=== PATIENT | female | born 2000 | race Caucasian/White ===

== ENCOUNTER 2020-07-09 18:01 | Emergency (ER) | payer MEDICAID ==
[~2020-07-09] VITALS: Ht 170.2 cm; Wt 204.1 kg
[2020-07-09 18:12] VITALS: BP 189/84
--- NOTE | 2020-07-09 18:38 | NUR ---
BIB MOTHER C/O SOB/WHEEZING/RIGHT FOOT SWELLING X2 DAYS. RESP EVEN AND UNLABORED. PATIENT IS WEAK D/T SOB, INHALER HAS NOT BEEN RELIEVING SOB .PT AWAKE , ALERT, AFIBRILE , AMBULATORY WITH STEADY GAIT , SCE , WHEEZES BLF , ROUND SOFT ABDOMEN.PLUS 2 NON PITTING EDEMA BILATERAL LOWER EXT. PMH: ASTHMA, HYDRONEPHROSIS, SEIZURES, ANXIETY, DEPRESSION, INTELLECTUAL DISABILITY Addendum: 07/09/20 at 1851 by MEDAD BIB MOTHER C/O SOB/WHEEZING/RIGHT FOOT SWELLING X2 DAYS. RESP EVEN AND UNLABORED. PATIENT IS WEAK D/T SOB, INHALER HAS NOT BEEN RELIEVING SOB .PT AWAKE , ALERT, AFIBRILE , AMBULATORY WITH STEADY GAIT , SCE , ROUND SOFT ABDOMEN.PLUS 1 NON PITTING EDEMA BILATERAL LOWER EXT. PMH: ASTHMA, HYDRONEPHROSIS, SEIZURES, ANXIETY, DEPRESSION, INTELLECTUAL DISABILITY
--- NOTE | 2020-07-09 18:46 | NUR ---
DR GARCIA AT BEDSIDE EVALUATRING PT.
[2020-07-09] MEDS ORDERED: KETOROLAC 60 MG/2 ML VIAL IM ONE (18:50)
--- NOTE | 2020-07-09 19:04 | NUR ---
MEDS GIVEN TO SEVEN TAI .
--- NOTE | 2020-07-09 19:05 | NUR ---
GAVE REPORT TO SEVEN TAI WITH STABLE VSS , MOTHER AT BEDSIDE.
--- NOTE | 2020-07-09 19:10 | NUR ---
REPORT RECEIVED FROM TRE AMEZCUA. ULTRASOUND AT BEDSIDE AT THIS TIME
[2020-07-09] MEDS ORDERED: ALBUTEROL SULFATE/IPRATROPIU 3 ML SOL IH ONE (19:25)
[2020-07-09] MEDS ORDERED: LORazepam 2 MG/ML VIAL IM ONE (19:35)
[2020-07-09 19:53] LABS: BASOPHILS # (AUTO) 0.1 K/uL (0.00-0.22); BASOPHILS % (AUTO) 0.5 % (0.0-2.0); EOSINOPHILS # (AUTO) 0.1 K/uL (0-0.4); EOSINOPHILS % (AUTO) 1.1 % (0.0-4.0); HEMOGLOBIN 12.9 g/dL (12.0-16.0); LYMPHOCYTES # (AUTO) 3.3 K/uL (2.5-16.5); MEAN CORPUSCULAR HEMOGLOBIN 28 pg (27-31); MEAN CORPUSCULAR HGB CONC 32 g/dL (33-37); MEAN CORPUSCULAR VOLUME 86.4 fL (80-94); MONOCYTES # (AUTO) 1.2 K/uL (0.8-1.0); MONOCYTES % (AUTO) 8.7 % (1.7-9.3); NEUTROPHILS # (AUTO) 9.1 K/uL (1.8-7.7); NEUTROPHILS % (AUTO) 65.7 % (42.2-75.2); PLATELET COUNT (AUTO) 251 K/uL (140-450); RED BLOOD CELL COUNT(AUTO) 4.63 MIL/uL (4.20-5.40); RED CELL DISTRIBUTION WIDTH 15.1 % (11.6-13.7); WHITE BLOOD COUNT (AUTO) 13.8 K/uL (4.8-10.8)
--- NOTE | 2020-07-09 20:06 | NUR ---
COVID AND INFLUENZA A AND B COLLECTED AND TAKEN TO LAB
[2020-07-09 20:16] LABS: ALBUMIN 2.6 g/dL (3.4-5.0); ANION GAP 7.8 (8-16); CARBON DIOXIDE 29.3 mmol/L (21-32); CREATININE 0.8 mg/dL (0.6-1.3); POTASSIUM 4.1 mmol/L (3.5-5.1); TOTAL BILIRUBIN 0.2 mg/dL (0.0-1.0)
--- NOTE | 2020-07-09 20:33 | NUR ---
PT RESTING QUIETLY AT THIS TIME. RESPIRATIONS REGULAR EVEN AND UNLABORED. MOM REAMINS AT BEDSIDE.
[2020-07-09 21:22] VITALS: BP 172/84
--- NOTE | 2020-07-09 21:23 | NUR ---
Patient discharged with v/s stable. Written and verbal after care instructions given and explained. Patient alert, oriented and verbalized understanding of instructions. Ambulatory with steady gait. All questions addressed prior to discharge. ID band removed. Patient advised to follow up with PMD. Rx of ALBUTEROL SOLUTION AND ZITHROMAX given. Patient educated on indication of medication including possible reaction and side effects. Opportunity to ask questions provided and answered.
== END 2020-07-09 21:23 | disposition home or self-care (01) ==
LOC: MED 18:01
DX: J18.9 Pneumonia, unspecified organism (principal); E66.01 Morbid (severe) obesity due to excess calories
CPT/HCPCS: 36415; 71045; 80053; 85025; 87426; 87804; 93971; 94640; 96372; 99285; J1885; J2060; Q0092

== ENCOUNTER 2020-07-12 21:27 | Emergency (ER) | payer MEDICAID ==
[~2020-07-12] VITALS: Ht 160 cm; Wt 181.4 kg
[2020-07-12 21:35] VITALS: BP 140/92
--- NOTE | 2020-07-12 22:11 | NUR ---
DR GARCIA AT BEDSIDE EVALUATING PT
--- NOTE | 2020-07-12 22:13 | NUR ---
20 Y/O FEMALE PT WAS SEEN IN ED 3 DAYS AGO DX WITH PNA, TESTED NEGATIVE FOR COVID. MOTHER STATES PT IS NOT IMPROVING WITH PRESCRIBED ABX. LUNGS SOUNDS CLA. O2 SAT 95% ON ROOM AIR. DENIES FEVER/PAIN. ABD SOFT NON TENDER. MED HX: MILD MENTAL RETARDATION, HYDRONEPHROSIS, ASTHMA RX: AZITHROMYCIN NKA
[2020-07-12] MEDS ORDERED: ALBUTEROL SULFATE/IPRATROPIU 3 ML SOL IH ONE (22:15)
--- NOTE | 2020-07-12 22:27 | NUR ---
RT AT BEDSIDE ADM BREATHING TX
[2020-07-12] MEDS ORDERED: LORazepam 2 MG/ML VIAL IM ONE (22:30)
--- NOTE | 2020-07-12 22:34 | NUR ---
SPO2 ON RA 94% HR 98 f 18 PT GIVEN DUO NEB Tx ORDERED PT HAS EXP WHZ
--- NOTE | 2020-07-12 23:00 | NUR ---
XRAY AT BEDSIDE
[2020-07-12 23:56] VITALS: BP 140/92
== END 2020-07-12 23:56 | disposition home or self-care (01) ==
LOC: MED 21:27
DX: R06.02 Shortness of breath (principal); B34.9 Viral infection, unspecified; E66.2 Morbid (severe) obesity with alveolar hypoventilation; J45.909 Unspecified asthma, uncomplicated; N13.2 Hydronephrosis with renal and ureteral calculous obstruction; R56.9 Unspecified convulsions
CPT/HCPCS: 71045; 82803; 94640; 96372; 99284; J2060; Q0092; 99283

== ENCOUNTER 2020-11-05 13:19 | Emergency (ER) | payer MEDICAID ==
[~2020-11-05] VITALS: Ht 160 cm; Wt 129.3 kg
[2020-11-05 13:33] VITALS: BP 113/87
[2020-11-05 15:25] VITALS: BP 121/84
== END 2020-11-05 15:26 | disposition home or self-care (01) ==
LOC: MED 13:19
DX: R06.00 Dyspnea, unspecified (principal); J45.909 Unspecified asthma, uncomplicated; Z88.8 Allergy status to other drugs, medicaments and biological substances
CPT/HCPCS: 71045; 93005; 99283